=== PATIENT | male | born 1970 | race Caucasian/White ===

== ENCOUNTER → 2024-04-19 14:39 | Outpatient (REF) | payer OTHER, SELFPAY | LOC: RAD 14:39 | PROVIDERS: ATTENDING PHYSICIAN Physician Assistant | DX: N50.89 Other specified disorders of the male genital organs (principal) | CPT/HCPCS: 76870; 93976 ==

== ENCOUNTER → 2024-05-10 11:11 | Outpatient (REF) | payer OTHER, SELFPAY | LOC: HWRAD 11:11 | PROVIDERS: ATTENDING PHYSICIAN Physician Assistant Medical; REFERRING PHYSICIAN Internal Medicine Endocrinology, Diabetes & Metabolism | DX: R79.89 Other specified abnormal findings of blood chemistry (principal) | CPT/HCPCS: 76536 ==

== ENCOUNTER → 2024-10-09 09:04 | Outpatient (REF) | payer OTHER, SELFPAY | LOC: RCS 09:04 | PROVIDERS: ATTENDING PHYSICIAN Physician Assistant Medical | DX: R42 Dizziness and giddiness (principal) | CPT/HCPCS: 93306 ==

== ENCOUNTER → 2025-02-17 12:47 | Outpatient (REF) | payer OTHER, SELFPAY | LOC: RCS 12:47 | PROVIDERS: ATTENDING PHYSICIAN Internal Medicine; FAMILY PHYSICIAN Physician Assistant Medical | DX: I34.0 Nonrheumatic mitral (valve) insufficiency (principal); R00.2 Palpitations; R55 Syncope and collapse | CPT/HCPCS: 93017 ==

== ENCOUNTER → 2025-03-05 13:29 | Outpatient (REF) | payer OTHER, SELFPAY | LOC: RCS 13:29 | PROVIDERS: ATTENDING PHYSICIAN Internal Medicine; FAMILY PHYSICIAN Physician Assistant Medical | DX: R94.31 Abnormal electrocardiogram [ECG] [EKG] (principal); R94.39 Abnormal result of other cardiovascular function study | CPT/HCPCS: 93017; 93350 ==

== ENCOUNTER 2025-03-17 07:30 | Day surgery (SDC) | payer OTHER, SELFPAY ==
[2025-03-17] VITALS (10 sets, daily range): BP systolic 114–151; BP diastolic 73–97; BMI 24.2
[2025-03-17] MEDS: NSS 230 ML IV (08:36)
[2025-03-17 09:52] LABS: ACT-LR - POC 221 Seconds (116-155)
[2025-03-17 09:56] LABS: ACT-LR - POC 248 Seconds (116-155)
--- NOTE | 2025-03-17 10:43 | ITS.CL.ANGIO ---
Director Of Business Services - Angioplasty
Angioplasty
Procedure Report:
CARDIAC CATHETERIZATION REPORT
Date of Procedure: 03/17/2025
Referring: APRIL Cortes
INDICATION: Progressive, accelerating angina, abnormal stress test.
PROCEDURE:
1. Left heart catheterization
2. Coronary angiography.
3. Successful PCI of the proximal and mid LAD.
4. IVUS.
A total of 67 minutes of procedural/moderate sedation was utilized. An independent medical insurance coder was present to assist with and help manage the patient's level of consciousness and physiologic status.
ACCESS:
1. 6 [place] right radial artery using a modified Seldinger technique.
CATHETERS:
1. 5 [place] JR4.
2. 5 [place] JL 3.5.
3. 6 [place] EBU 3.75 guiding catheter.
HEMODYNAMIC DATA
Weight (kg): 76.5
AO (s/d/x, mmHg): 127/82/105
LV (s/x mmHg): 127/11
AV gradient (x, mmHg): None.
LEFT VENTRICULOGRAPHY: Not performed.
CORONARY ANGIOGRAPHY
Dominance: Left.
Left Main: Large size, bifurcating vessel. There is no coronary artery disease.
LAD: Large size vessel giving rise to 1 significant diagonal. There is a 40-50% lesion in the proximal vessel. There is an 80% lesion in the more distal section of the proximal LAD before the origin of the first diagonal. There is a
longer 90% lesion in the mid LAD after the origin of the first diagonal. There is a 40% lesion in the distal LAD.
Ramus: Congenitally absent.
Circumflex: Large size, dominant vessel giving rise to 2 obtuse marginals before terminating as an LPDA. There are minor luminal irregularities.
RCA: Small to medium size, nondominant vessel. There are minor luminal irregularities.
INTERVENTION(S)
1. Successful IVUS guided PCI of the 80% proximal LAD and 90% mid LAD lesions (overlapping Xience Skypoint 3.0 x 38 NIKI, 3.25 x 12 NIKI, postdilated with a 3.0 NC balloon throughout, a 3.25 NC balloon in the proximal and mid segment and a 3.5 x 8 NC
balloon in the proximal margin) with reduction in stenosis to 0%, maintaining HILARY-3 flow.
Narrative:
The decision was made to proceed with percutaneous coronary intervention. The diagnostic catheter was removed over a wire and a 6Fr EBU 3.75 guiding catheter was advanced to the aortic root and seated in the left main coronary artery. Additional
heparin was given and a Power Turn Flex wire was advanced into the distal LAD. A BMW wire was advanced into the first diagonal for protection knowing that the stent would span the origin of the first diagonal. The 90% mid LAD and 80% proximal LAD
lesions were predilated with a 2.0 x 12 semi-compliant balloon to 12 dinora. The semi-compliant balloon was removed and a Xience Skypoint 3.0 x 38 drug-eluting stent was advanced into the mid LAD, ensuring that the distal aspect of the stent completely
cover the atherosclerotic lesion. The proximal margin of the stent extended into the proximal LAD and partially covered the 80% lesion while also covering the origin of the first diagonal. The stent was deployed at 12 atmospheres. The stent balloon
was removed.
Repeat angiography demonstrated patency of the diagonal. The BMW wire was pulled back from behind the mid LAD stent and then redirected into the stented segment. This wire was then redirected into the diagonal through the stent struts, confirming
that the diagonal artery was both patent and easily accessible percutaneously. The BMW wire was subsequently withdrawn.
A Xience Skypoint 3.25 x 12 drug-eluting stent was advanced into the proximal LAD to extend the stented segment and cover the remainder of the 80% lesion. Angiography confirmed placement with the distal aspect of the stent overlapping with the
proximal margin of the mid LAD stent. When we were satisfied with our position, the stent was deployed at 12 dinora. The stent balloon was advanced into the overlap and the overlap was postdilated to 12 dinora. The stent balloon was withdrawn.
A 3.0 x 20 noncompliant balloon was advanced into the stent and the entire stent was postdilated to 15 atmospheres. The noncompliant balloon was withdrawn and a 3.25 x 15 noncompliant balloon was advanced. The proximal LAD stent into the mid LAD
stent was postdilated to 15 dinora. The noncompliant balloon was withdrawn.
The decision was made to perform intracoronary imaging. An IVUS catheter was advanced through the guiding catheter and into the ostium of the artery. Ring down was performed once the imaging crystal was no longer inside of the guiding catheter. The
IVUS catheter was advanced into the distal LAD, beyond the stented segment. Intravascular ultrasound was performed in a retrograde fashion using a slow pullback. Intracoronary imaging demonstrated good stent apposition throughout the entire mid LAD
and the majority of the proximal LAD. There was some very mild mall apposition in the proximal margin of the stent. There was 1 area of underexpansion in the mid LAD immediately distal to the diagonal origin. Vessel measurements were obtained
including the 40-50% proximal LAD which demonstrated a minimal luminal area >5.0 mm�. The decision was made to medically manage this lesion.
The IVUS catheter was withdrawn and the 3.25 x 15 noncompliant balloon was readvanced. The underexpanded segment of the mid LAD stent was postdilated to 15 dinora. The noncompliant balloon was withdrawn and a 3.5 x 8 noncompliant balloon was
advanced. The proximal edge of the stented segment was postdilated to 14 dinora. The noncompliant balloon was withdrawn. Repeat angiography showed reduction in all treated stenoses to 0% with maintenance of HILARY-3 flow. There was a small
radiolucency near the proximal margin of the stented segment which appeared to be displaced calcium, however IVUS was repeated to rule out any area of dissection or vessel disruption. IVUS confirmed good stent expansion and apposition throughout
the entire visualized segment with no evidence of dissection or vessel disruption. The IVUS catheter was withdrawn.
Angiography was performed in orthogonal views, confirming good stent expansion and an excellent angiographic result. The coronary wire was withdrawn and the guide was disengaged from the artery. The catheter was removed over a standard J-wire.
Closure Device: Vascular band.
Radiation (mGy): 916.51
DAP (cm2.Gy): 72.7672
Fluoroscopy time (minutes): 12.8
CONCLUSIONS
1. Left dominant circulation with luminal irregularities in the circumflex system, a 40-50% lesion in the proximal LAD followed by an 80% lesion in the more distal proximal LAD before the origin of the first diagonal followed by a longer 90% lesion
in the mid LAD and a 40% lesion in the distal LAD, status post successful IVUS guided PCI of the 80% proximal LAD and 90% mid LAD lesions (overlapping Xience Skypoint 3.0 x 38 NIKI, 3.25 x 12 NIKI, postdilated with a 3.0 NC balloon throughout, a 3.25
NC balloon in the proximal and mid segment and a 3.5 x 8 NC balloon in the proximal margin) with reduction in stenosis to 0%, maintaining HILARY-3 flow.
2. Normal filling pressures (LVEDP = 11 mmHg at 76.5 kg).
RECOMMENDATIONS:
1. Expectant management after cardiac catheterization via right approach.
2. Limited weight bearing on the right wrist for one week.
3. Dual antiplatelet therapy with aspirin and clopidogrel for at least 12 months, followed by aspirin indefinitely.
4. Aggressive secondary prevention with high-dose, high potency statin. Start atorvastatin 40 mg daily. Goal LDL <55.
5. Patient is intolerant of beta-blockers.
6. Referral to cardiac rehab.
Copy to: APRIL Cortes, Chapito Oquendo M.D., Ph.D., Dov Correia PA-C
Carlo Sam, , FACC, FACP
[2025-03-17 11:12] LABS: ACT-LR - POC > 397 Seconds (116-155)
[2025-03-17 11:12] LABS: ACT-LR - POC > 397 Seconds (116-155)
--- NOTE | 2025-03-17 13:01 | W.PN.UPDATE ---
Update Note
Progress Note Update
Pt seen post LAD PCI w/NIKI x2. Right radial cath site without ht/bleeding, non tender. OOB ambulating. Post EKG NSR 80, no acute changes. Pt understands importance of uninterrupted DAPT w/asa, clopidogrel for 1 year post stenting. New start
atorvastatin 40mg daily. Cardiac rehab consulted. Followup at [facility] as scheduled. Home later today if cath site/tele remain stable.
[2025-03-17] MEDS: TYLENOL 650 MG PO (14:44)
== END 2025-03-17 15:02 | disposition home or self-care (01) ==
LOC: CATH 07:30
PROVIDERS: ATTENDING PHYSICIAN Internal Medicine Cardiovascular Disease; FAMILY PHYSICIAN Physician Assistant Medical; OTHER PHYSICIAN Internal Medicine
DX: I25.110 Atherosclerotic heart disease of native coronary artery with unstable angina pectoris (principal); Z79.02 Long term (current) use of antithrombotics/antiplatelets; Z79.82 Long term (current) use of aspirin; Z79.899 Other long term (current) drug therapy; R94.39 Abnormal result of other cardiovascular function study
CPT/HCPCS: 92978; 99152; 99153; 85347; 93005; 93458; C1725; C1753; C1769; C1874; C9600; Q9967

== ENCOUNTER → 2025-03-25 14:00 | Outpatient (REF) | payer OTHER, SELFPAY | LOC: RAD 14:00 | PROVIDERS: ATTENDING PHYSICIAN Internal Medicine; FAMILY PHYSICIAN Physician Assistant Medical | DX: I25.10 Atherosclerotic heart disease of native coronary artery without angina pectoris (principal); I73.9 Peripheral vascular disease, unspecified | CPT/HCPCS: 93880; 93922; 93925 ==